=== PATIENT | female | born 1990 | race Caucasian/White ===

== ENCOUNTER 2019-02-16 15:18 | Emergency (ER) | payer OTHER ==
[2019-02-16 16:26] VITALS: BP 105/69
--- NOTE | 2019-02-16 17:20 | UC ---
Skin Complaint HPI - HPI Summary HPI Summary: The patient is a 28-year-old female that noticed a pruritic rash on her torso this afternoon when she was taking a shower. The rash seemed to worsen after a warm shower. For the past 3 or 4 days she has had some malaise and nausea. She denies any fever. She denies any new soaps or detergents. She has not had a tick bite. She had a mild sore throat about 3 days ago. 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 - History of Current Complaint Chief Complaint: UCGeneralIllness Stated Complaint: NAUSEA, AND RASH Hx Obtained From: Patient Hx Last Menstrual Period: 02/16/19 Onset/Duration: Gradual Onset Skin Exposure Onset/Duration: Hours Ago Onset Severity: Mild Current Severity: Mild Pain Intensity: 1 Pain Scale Used: 0-10 Numeric Location: Other - trunk Character: Pruritus, Redness Aggravating Factor(s): Showering Alleviating Factor(s): Nothing Associated Signs & Symptoms: Positive: Nausea, Rash - Allergy/Home Medications Allergies/Adverse Reactions: Allergies Allergy/AdvReac Type Severity Reaction Status Date / Time Penicillins Allergy Unknown Verified 02/16/19 16:23 Reaction Details Home Medications: Home Medications Copper (Iud) [Paragard IUD] 1 unit INTRAUTERI ONCE 02/16/19 [History Confirmed 02/16/19] PMH/Surg Hx/FS Hx/Imm Hx Previously Healthy: Yes - Surgical History Surgical History: None - Family History Known Family History: Positive: Hypertension - Social History Alcohol Use: None Substance Use Type: None Smoking Status (MU): Never Smoked Tobacco Review of Systems All Other Systems Reviewed And Are Negative: Yes Constitutional: Positive: Negative Skin: Positive: Rash Eyes: Positive: Negative ENT: Positive: Negative Respiratory: Positive: Negative Cardiovascular: Positive: Negative Gastrointestinal: Positive: Nausea Genitourinary: Positive: Negative Motor: Positive: Negative Neurovascular: Positive: Negative Musculoskeletal: Positive: Negative Neurological: Positive: Negative Psychological: Positive: Negative Physical Exam Triage Information Reviewed: Yes Appearance: Well-Appearing, No Pain Distress, Well-Nourished Vital Signs: Initial Vital Signs Temp 99.4 F 02/16/19 16:20 Pulse 84 02/16/19 16:20 Resp 18 02/16/19 16:20 BP 105/69 02/16/19 16:20 Pulse Ox 100 10/21/19 16:20 Vital Signs Reviewed: Yes Eyes: Positive: Conjunctiva Clear ENT: Positive: Hearing grossly normal, Uvula midline. Negative: Nasal congestion, Tonsillar swelling, Tonsillar exudate, Muffled voice, Hoarse voice Dental Exam: Normal Neck: Positive: Supple, Nontender, No Lymphadenopathy Respiratory: Positive: Lungs clear, Normal breath sounds, No respiratory distress Cardiovascular: Positive: No Murmur, Pulses Normal Musculoskeletal: Positive: ROM Intact, No Edema Neurological: Positive: Alert, Muscle Tone Normal Psychological Exam: Normal Skin Exam: Other - fine red macular rash on torso, face and extr rash free, no petechiae Course/Dx - Diagnoses Provider Diagnosis: Rash in adult Discharge ED - Sign-Out/Discharge Documenting (check all that apply): Patient Departure All imaging exams completed and their final reports reviewed: No Studies - Discharge Plan Condition: Stable Disposition: HOME Patient Education Materials: Acute Rash (ED) Referrals: [facility] [place] [facility] [Outside] - If Needed Additional Instructions: your strep test was negative your rash may be due to a viral illness RECHECK FOR NEW OR WORSENING SYMPTOMS a blood count and MONO test are pending you may take benadryl if needed for itching rest fluids recheck in 4 days if not better - Billing Disposition and Condition Condition: STABLE Disposition: Home
[2019-02-17 11:28] LABS: ABS Eosinophils 0.1 10^3/ul (0-0.6); ABS Monocytes 0.5 10^3/ul (0-0.8); ABS Neutrophils 5.3 10^3/ul (1.5-7.7); Eosinophil % 0.8 %; Hematocrit 41 % (35-47); Hemoglobin 13.9 g/dL (12.0-16.0); Lymphocyte % 24.9 %; Mean Corpuscular HGB Conc 34 g/dL (31-36); Mean Corpuscular Hemoglobin 31 pg (27-31); Mean Corpuscular Volume 93 fL (80-97); Mean Platelet Volume 8.6 fL (7.4-10.4); Nucleated Red Blood Cells % 0.1; Platelet Count 282 10^3/uL (150-450); Red Blood Count 4.45 10^6 /uL (3.70-4.87); Red Cell Distribution Width 13 % (10-15); White Blood Count 7.9 10^3/uL (3.5-10.8)
== END 2019-02-16 18:00 | disposition home or self-care (01) ==
LOC: UCEAST 15:18
DX: R21 Rash and other nonspecific skin eruption (principal); R11.0 Nausea; Z88.0 Allergy status to penicillin
CPT/HCPCS: 36415; 85025; 86308; 87651; 99201; G0463